=== PATIENT | female | born 1980 | race Caucasian/White ===

== ENCOUNTER 2017-04-12 20:27 | Emergency (ER) | payer BC ==
[~2017-04-12] VITALS: Ht 170.2 cm; Wt 99.2 kg
[~2017-04-12 20:27] MED LIST: OXYC-360 PO; PRENTAB62 PO
[2017-04-12 20:31] VITALS: BP 120/78; PULSE 93; RESP 20; TEMP 98.2; O2SAT 98
[2017-04-12] MEDS ORDERED: LEXA10TA PO (20:41)
[2017-04-12] MEDS ORDERED: KETOROLAC TROMETHAMINE 60 MG/2 ML (IM) VIAL IM ONE (21:00)
[2017-04-12] MEDS ORDERED: ORPHENADRINE INJ 60 MG/2 ML AMP IM ONE (21:00)
[2017-04-12] MEDS ORDERED: ROBA500T PO (21:20)
[2017-04-12] MEDS ORDERED: IBUP800T23 PO (21:20)
--- NOTE | 2017-04-12 21:21 | PD ---
HPI Chief Complaint: Back/ Neck Pain or Injury Time Seen by Provider: 20:55 Travel History International Travel<30 days: No Contact w/Intl Traveler<30days: No Traveled to known affect area: No History of Present Illness HPI 36-year-old female presents emergency department for evaluation of low back pain for one day. Patient reports symptom onset yesterday morning when she awoke. Since then she reports that the pain has gotten increasingly worse and now feels stiff in her low back. She denies a specific injury. She does report having previous L4-L5 discectomy in 2009. She reports she occasionally has flareups of low back pain. She is not currently on any medications. She reports the pain is localized to the low back, nonradiating, intermittent, worse with movement and relieved with rest, severity 7 out of 10. She denies numbness/weakness/tingling in the lower extremities, incontinence, fever/chills , or urinary frequency dysuria. She has not currently tried any home medications. PFSH Past Medical History Narrative Medical Significant for depression Depression: Yes Diminished Hearing: No Tetanus Vaccination: < 5 Years Influenza Vaccination: No ?: Unknown LMP: 2 WEEKS AGO Past Surgical History Appendectomy: Yes Neurologic Surgery: Yes ("Back surgery") Oral Surgery: Yes (wisdom teeth) Social History Alcohol Use: No Tobacco Use: No Substance Use: No Allergies-Medications (Allergen,Severity, Reaction): Coded Allergies: Medrol (Verified Allergy, Severe, Short of Breath, 04/12/17) Cipro (Verified Allergy, Unknown, Cant Hear, 04/12/17) Reported Meds & Prescriptions Reported Meds & Active Scripts Active Reported Lexapro (Escitalopram Oxalate) 10 Mg Tab 10 Mg PO DAILY Review of Systems Except as stated in HPI: all other systems reviewed are Neg Musculoskeletal: Positive: Other (back pain) Physical Exam Narrative GENERAL: Alert, well-appearing female. No acute distress SKIN: Focused skin assessment warm/dry. HEAD: Atraumatic. Normocephalic. EYES: Pupils equal and round. No scleral icterus. No injection or drainage. ENT: No nasal bleeding or discharge. Mucous membranes pink and moist. NECK: Trachea midline. No JVD. CARDIOVASCULAR: Regular rate and rhythm. No murmur appreciated. RESPIRATORY: No accessory muscle use. Clear to auscultation. Breath sounds equal bilaterally. GASTROINTESTINAL: Abdomen soft, non-tender, nondistended. Hepatic and splenic margins not palpable. MUSCULOSKELETAL: No obvious deformities. No clubbing. No cyanosis. No edema. 2+ DTRs. 5 out of 5 strength in lower extremities. BACK: No midline spine tenderness. Palpable tenderness to bilateral paraspinous muscles lumbar region. Negative straight leg raise. NEUROLOGICAL: Awake and alert. No obvious cranial nerve deficits. Motor grossly within normal limits. Normal speech. PSYCHIATRIC: Appropriate mood and affect; insight and judgment normal. Data Data Last Documented VS Vital Signs Date Time Temp Pulse Resp B/P Pulse Ox O2 Delivery O2 Flow Rate FiO2 04/12/17 20:31 98.2 93 20 120/78 98 Orders Ketorolac Inj (Toradol Inj) (04/12/17 21:00) Orphenadrine Inj (Norflex Inj) (04/12/17 21:00) [facility] Medical Decision Making Medical Screen Exam Complete: Yes Emergency Medical Condition: Yes Differential Diagnosis Lumbar strain, lumbago, herniated disc, sciatica Narrative Course 36-year-old female since emergency department for evaluation of low back pain. On exam patient is found to have what consistent with a lumbar strain. She will be treated with NSAIDs and muscle relaxers. Patient will follow-up with primary doctor for recheck this week. Diagnosis Primary Impression: Lumbar strain Qualified Code: S39.012A - Lumbar strain, initial encounter Referrals: Primary Care Physician Departure Forms: Tests/Procedures, Work Release Enter return to work date: Apr 16, 2017 Additional Instructions: Take the medications as prescribed as needed for pain. Use ice and/or heat for pain relief and low back. Follow-up the primary care doctor. Scripts Methocarbamol (Robaxin)500 Mg [id number] Mg PO TID PRN (MUSCLE SPASM) #12 TAB Prov:Oneyda Gomez 04/12/17 Ibuprofen 800 Mg [id number] Mg PO Q8H PRN (Pain/Inflammation) #30 TAB Prov:Oneyda Gomez 04/12/17 Disposition: 01 DISCHARGE HOME Condition: Stable Oneyda Gomez Apr 12, 2017 21:21
== END 2017-04-12 21:32 | disposition home or self-care (01) ==
LOC: PHEFT 20:27
DX: S39.012A Strain of muscle, fascia and tendon of lower back, initial encounter (principal); X58.XXXA Exposure to other specified factors, initial encounter
CPT/HCPCS: 96372; 99284; J1885; J2360